=== PATIENT | male | born 2005 | race Caucasian/White ===

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

== ENCOUNTER 2024-09-16 00:35 | Emergency (ER) | payer BC ==
[~2024-09-16] VITALS: Ht 167.6 cm; Wt 51.2 kg
[~2024-09-16 00:35] MED LIST changes: +MECL-302 PO
[2024-09-16] MEDS: ibuprofen 200mg tablet PO STA (01:42)
[2024-09-16 02:47] VITALS: BP 133/82; PULSE 68; RESP 16; TEMP 97.7; O2SAT 99
== END 2024-09-16 02:49 | disposition home or self-care (01) ==
LOC: ER 00:36
DX: S06.0XAA Concussion with loss of consciousness status unknown, initial encounter (principal); S00.83XA Contusion of other part of head, initial encounter; S60.511A Abrasion of right hand, initial encounter; S60.512A Abrasion of left hand, initial encounter; Z79.899 Other long term (current) drug therapy; V09.9XXA Pedestrian injured in unspecified transport accident, initial encounter; Y93.55 Activity, bike riding; Y92.89 Other specified places as the place of occurrence of the external cause; Y99.8 Other external cause status
CPT/HCPCS: 70450; 99284